=== PATIENT | male | born 1960 | race Two or more races ===

== ENCOUNTER 2019-11-27 22:50 | Inpatient (IN) | payer OTHER ==
[~2019-11-27] VITALS: Ht 165.1 cm; Wt 83.5 kg
[2019-11-27 22:00] VITALS: BP 156/96
--- NOTE | 2019-11-27 22:03 | NUR ---
CHAI NURSE REBECCA FROM [facility] CALLED REPORT ON PATIENT. AWAITING PATIENT ARRIVAL TO FLOOR.
[2019-11-27 22:33] VITALS: BP 156/91
--- NOTE | 2019-11-27 22:33 | NUR ---
Direct Admit Note ESSENCE SALMERON admitted to Telemetry/MS unit as a direct admit per MD order. Patient oriented to BUDDY WILCOX RN primary RN, unit, room, bed, and unit policies regarding patient care and visiting hours. Patient is being admitted under Dr Dash for stroke. Patient placed on bedside oxygen, weighed by bedscale and encouraged to call if they need something. All questions and concerns addressed, patient verbalized understanding. MD notified of patients arrival and admit orders received. Addendum: 11/27/19 at 2341 by BUDDY WILCOX RN RN patient has rightsided facial drop and has guards at bedside.
--- NOTE | 2019-11-27 22:57 | NUR ---
ADMITTING ORDERS CALLED DR CAMPOVERDE FOR ADMITTING ORDERS. DX: CVA, CONDITION: STABLE, ADMIT UNDER DR CAMPOVERDE, ALLERGIES: NKDA, DIET: REGULAR, IV HL, LABS: UDS, MRI BRAIN: FOR CVA, PLAVIX 75MG PO DAILY, NORCO 10/325MG PO EVERY 4HRS PRN PAIN, AND PROTONIX 40 MG PO DAILY. TORBO. ASKED DR CAMPOVERDE FOR NUERO CONSULT, NO NEW ORDERS.
[2019-11-27] MEDS ORDERED: MORPHINE SULF INJ 2 MG/ML SYRINGE 1ML IV PRN (23:00)
[2019-11-27] MEDS ORDERED: HYDROcodone-ACET 10/325MG TAB PO PRN (23:00)
[2019-11-27] MEDS ORDERED: NITROGLYCERIN 0.4 MG SL TAB SL PRN (23:00)
[2019-11-27] MEDS ORDERED: IBUP200C3 PO (23:12)
[2019-11-28 05:00] VITALS: BP 150/101
--- NOTE | 2019-11-28 06:02 | NUR ---
MRSA NARES SWAB SENT. PATIENT HAS NO C/O PAIN OR ANY DISCOMFORT.
[2019-11-28] MEDS ORDERED: cloNIDine HCL 0.1 MG TAB PO PRN (08:45)
[2019-11-28 09:00] VITALS: BP 108/79
[2019-11-28] MEDS: CLOPIDOGREL BISULFATE 75 MG TAB PO SCH (10:39)
[2019-11-28] MEDS: amLODIPine BESYLATE 5 MG TAB PO SCH (10:40)
[2019-11-28] MEDS: PANTOPRAZOLE 40 MG TAB PO SCH (10:40)
[2019-11-28] MEDS ORDERED: ACCU-CHEK COMFORT CURVE STRIP VI SCH (11:06)
[2019-11-28 11:11] LABS: Urine Bacteria NONE SEEN /hpf (None Seen); Urine Blood Negative /uL (Negative); Urine Mucus FEW (None Seen); Urine Specific Gravity 1.044 (1.001-1.035); Urine WBC 1 /hpf (0 - 3)
[2019-11-28 11:23] LABS: Alcohol, Urine < 3.0 mg/dL (0-10); Amphetamine Screen, Urine NEGATIVE (NEGATIVE); Barbiturate Scree,Urine NEGATIVE (NEGATIVE); Benzodiazephine Screen, Urine NEGATIVE (NEGATIVE); Cannabinoid Screen, Urine NEGATIVE (NEGATIVE); Cocaine Screen, Urine NEGATIVE (NEGATIVE); Opiate Scree,Urine NEGATIVE (NEGATIVE); Phencyclidine Screen, Urine NEGATIVE (NEGATIVE)
--- NOTE | 2019-11-28 12:25 | NUR ---
PT ACCU CHECK 322, NO SLIDING SCALE AVAILABLE AT THIS TIME, CALLED AND LEFT MESSAGE FOR DR CAMPOVERDE, AWAITING CALL BACK.
--- NOTE | 2019-11-28 12:43 | NUR ---
CALLED DIETARY AND LEFT MESSAGE NOTIFYING THEM PT IS AN INMATE, PLASTIC SILVERWARE NEEDED.
[2019-11-28 13:00] VITALS: BP 139/79
--- NOTE | 2019-11-28 14:04 | NUR ---
MRI CALLED, THEY REPORT PT HAD AN ACUTE STROKE OF THE LEFT BASIL GANGLIA. CALLED DR CAMPOVERDE, REPORTED TO MD RESULTS OF MRI AND STROKE. NOTIFIED MD PT BLOOD SUGAR 322 AND REQUESTED SLIDING SCALE AND TO CHANGE DIET. MD REPORTS NOT TO CHANGE DIET, BUT ORDERS FOR ACCU CHECKS BID WITH MODERATE COVERAGE. MD AWARE OF STROKE, NO NEW ORDERS.
[2019-11-28] MEDS ORDERED: DEXTROSE (50%) 50ML SYRG IV PRN (14:30)
[2019-11-28] MEDS: InsuLIN REG 1unit/0.01ml Soln (100units/ml) SC SCH ×2 (14:41→22:00)
[2019-11-28] MEDS: ACCU-CHEK COMFORT CURVE STRIP VI SCH ×2 (14:41→22:00)
[2019-11-28 17:00] VITALS: BP 141/72
--- NOTE | 2019-11-28 19:45 | NUR ---
Opening Shift Note Assuming care of patient. Patient is awake and alert. Bed is locked and lowered with side rails up x2. Instructed patient on the plan of care and to call for assistance as needed. Call light within reach. Guards at the bedside and patient handcuffed to bed on right wrist. Will continue to round hourly and prn.
[2019-11-28 22:00] VITALS: BP 142/94
[2019-11-29 05:10] VITALS: BP 138/88
--- NOTE | 2019-11-29 08:43 | NUR ---
Spoke to PT Nimco, will come in about 30 mins.
[2019-11-29 09:00] VITALS: BP 145/85
[2019-11-29] MEDS: CLOPIDOGREL BISULFATE 75 MG TAB PO SCH (09:29)
[2019-11-29] MEDS: PANTOPRAZOLE 40 MG TAB PO SCH (09:29)
[2019-11-29] MEDS: ACCU-CHEK COMFORT CURVE STRIP VI SCH ×2 (09:30→22:14)
[2019-11-29] MEDS: amLODIPine BESYLATE 5 MG TAB PO SCH (09:30)
[2019-11-29] MEDS: InsuLIN REG 1unit/0.01ml Soln (100units/ml) SC SCH ×2 (09:34→22:15)
--- NOTE | 2019-11-29 10:00 | NUR ---
Patient walks with PT, using a walker, tolerated well with minimum assist.
[2019-11-29 13:00] VITALS: BP 155/89
--- NOTE | 2019-11-29 15:53 | NUR ---
Dr. Najera at bedside, received new order, noted and carried it out.
--- NOTE | 2019-11-29 16:21 | NUR ---
Patient upgraded to be TELE, CN notified. Patient placed on TELE # [id number].
--- NOTE | 2019-11-29 16:30 | NUR ---
Transfer of Care Assuming care of patient at this time from RENETTA iVeyra. Patient resting comfortably in bed. No distress noted.
--- NOTE | 2019-11-29 16:30 | NUR ---
Report given to Ariana JACKSON.
[2019-11-29 17:00] VITALS: BP 153/87
--- NOTE | 2019-11-29 19:04 | NUR ---
Closing Shift Note Patient resting in bed. No distress noted. Report given. Will endorse care to the fast food shift lead RN.
--- NOTE | 2019-11-29 19:50 | NUR ---
Opening Shift Note Assumed care of patient, awake and alert. No S/S of distress/SOB or pain. Instructed on POC and to call for assist PRN. Bed in lowest locked position, call light within reach, side rails up x2, fall precautions in place. Will continue to monitor for changes Q1hr and PRN.
--- NOTE | 2019-11-29 21:45 | NUR ---
Called/paged Dr. Dash called regarding elevated blood sugar of 440, recheck was 440. Waiting for call back. Continue care.
--- NOTE | 2019-11-29 21:50 | NUR ---
returned call Dr. Dash returned call, updated on patient status and reason for call, new orders received and read back for verification. Continue care.
[2019-11-29 22:00] VITALS: BP 160/99
[2019-11-29] MEDS ORDERED: INSULIN LANTUS (GLARGINE) 1 /0.01ml (100units/ml) SC SCH (22:00)
[2019-11-30 05:00] VITALS: BP 120/79
--- NOTE | 2019-11-30 07:00 | NUR ---
Opening Shift Note Received report on the patient. Awake lying in bed. Discussed the plan of care with the patient. Patient shows no signs of distress at this time. Bed in lowest position, side rails up x2, and the call light is within reach.
[2019-11-30 09:00] VITALS: BP 128/76
[2019-11-30] MEDS: CLOPIDOGREL BISULFATE 75 MG TAB PO SCH (09:58)
[2019-11-30] MEDS: amLODIPine BESYLATE 5 MG TAB PO SCH (09:58)
[2019-11-30] MEDS: ACCU-CHEK COMFORT CURVE STRIP VI SCH ×2 (09:58→21:54)
[2019-11-30] MEDS: PANTOPRAZOLE 40 MG TAB PO SCH (09:58)
[2019-11-30] MEDS: InsuLIN REG 1unit/0.01ml Soln (100units/ml) SC SCH ×2 (10:16→21:53)
[2019-11-30 13:00] VITALS: BP 122/80
[2019-11-30] MEDS: INSULIN LANTUS (GLARGINE) 1 /0.01ml (100units/ml) SC SCH ×2 (15:08→21:53)
[2019-11-30 16:57] VITALS: BP 126/80
[2019-11-30] MEDS: LACTULOSE 20Gm/30ML SOLN PO SCH (18:38)
--- NOTE | 2019-11-30 19:40 | NUR ---
Opening Shift Note Assumed care of patient, awake and alert x4. No S/S of distress/SOB or pain. Guards are at bedside for safety. Call light is within reach, side rails up x2, bed is in the lowest position. Instructed on POC and to call for assist PRN, will continue to monitor for changes Q1hr and PRN.
[2019-11-30 21:20] VITALS: BP 128/79
[2019-12-01] MEDS: LACTULOSE 20Gm/30ML SOLN PO SCH ×4 (00:08→17:39)
[2019-12-01 05:23] VITALS: BP 133/88
--- NOTE | 2019-12-01 06:00 | NUR ---
Patient refused his 0600 Lactulose, explained to the patient the benefits and risks, he verbalized understanding, will continue to monitor.
[2019-12-01 09:00] VITALS: BP 143/88
[2019-12-01] MEDS: PANTOPRAZOLE 40 MG TAB PO SCH (10:21)
[2019-12-01] MEDS: METOPROLOL SUCCINATE XL 50 MG TAB PO SCH (10:21)
[2019-12-01] MEDS: CLOPIDOGREL BISULFATE 75 MG TAB PO SCH (10:21)
[2019-12-01] MEDS: ACCU-CHEK COMFORT CURVE STRIP VI SCH ×2 (10:22→21:23)
[2019-12-01] MEDS: LISINOPRIL 5 MG TAB PO SCH (10:22)
[2019-12-01] MEDS: InsuLIN REG 1unit/0.01ml Soln (100units/ml) SC SCH ×2 (11:03→21:54)
--- NOTE | 2019-12-01 12:00 | NUR ---
Patient refused lactulose
[2019-12-01 13:00] VITALS: BP 148/87
--- NOTE | 2019-12-01 13:51 | NUR ---
Est energy needs 3191-8900 kcal (23-25 kcal/kg BW 83.5kg) Est protein needs 67-84g (0.8-1g/kg BW 83.5kg) Will reassess prn. Addendum: 12/01/19 at [address] Amended: Links added.
[2019-12-01 17:00] VITALS: BP 103/61
--- NOTE | 2019-12-01 19:35 | NUR ---
Opening Shift Note Assumed care of patient, awake and alert. No S/S of distress/SOB or pain. Bed in lowest locked position, side rails up x2, call light within reach. Guards at bedside. Instructed on POC and to call for assist PRN, will continue to monitor for changes Q1hr and PRN.
--- NOTE | 2019-12-01 20:00 | NUR ---
Offered to change patient's IV site as per hospital policy. Patient refusing at this time. Patient educated on the risks and benefits of keeping current IV, patient verbalized understanding, but is continuing to refuse at this time. Current IV to right AC asymptomatic and patent. Will continue to monitor.
[2019-12-01] MEDS: INSULIN LANTUS (GLARGINE) 1 /0.01ml (100units/ml) SC SCH (21:55)
[2019-12-01 22:00] VITALS: BP 135/75
--- NOTE | 2019-12-02 | NUR ---
Patient refused his 00:00 Lactulose. This RN explained to the patient the benefits and risks of the aforementioned medication. Patient verbalized understanding, continues to refuse at this time., states he had a bowel movement on 12/01/19. Will continue to monitor.
[2019-12-02] MEDS: LACTULOSE 20Gm/30ML SOLN PO SCH ×4 (00:34→17:28)
[2019-12-02 05:49] VITALS: BP 118/72
[2019-12-02 09:00] VITALS: BP 117/76
[2019-12-02] MEDS: InsuLIN REG 1unit/0.01ml Soln (100units/ml) SC SCH ×2 (10:00→21:44)
[2019-12-02] MEDS: METOPROLOL SUCCINATE XL 50 MG TAB PO SCH (11:03)
[2019-12-02] MEDS: PANTOPRAZOLE 40 MG TAB PO SCH (11:03)
[2019-12-02] MEDS: CLOPIDOGREL BISULFATE 75 MG TAB PO SCH (11:03)
[2019-12-02] MEDS: LISINOPRIL 5 MG TAB PO SCH (11:04)
[2019-12-02] MEDS: ACCU-CHEK COMFORT CURVE STRIP VI SCH ×2 (11:04→21:48)
--- NOTE | 2019-12-02 11:45 | NUR ---
Opening Shift Note Assumed care of patient, awake, alert, and oriented. No S/S of distress/SOB or pain. Bed in lowest/locked position, bed rails up x2, call light within reach. Instructed on POC and to call for assist PRN. Will continue to monitor for changes Q1hr and PRN.
--- NOTE | 2019-12-02 11:45 | NUR ---
REPORT REPORT RECEIVED FROM RENETTA SINGH. ALL QUESTIONS/CONCERNS ADDRESSED.
--- NOTE | 2019-12-02 11:56 | NUR ---
Closing Note Patient lying in bed, awake and alert. No s/s of distress. Bed in lowest locked position, side rails up x2, call light within reach. Guards at bedside. Care endorsed to Christina JACKSON for continuation of care.
--- NOTE | 2019-12-02 12:00 | NUR ---
Patient refused lactulose. Last bowel movement per patient reported 11/30
[2019-12-02 13:00] VITALS: BP 118/71
[2019-12-02 16:52] VITALS: BP 141/79
--- NOTE | 2019-12-02 17:28 | NUR ---
Patient refused lactulose. Last bowel movement per patient reported 11/30
--- NOTE | 2019-12-02 19:00 | NUR ---
OPENING NOTE Received report from day shift RN. Patient is awake/ alert and oriented. No s/s of distress noted. Patient reports no pain. Bed is in lowest/locked position with side rails up X's 2 and call light is within reach of patient. Guards are at bedside. Educated patient on POC and to use call light when in need of assistance. Patient verbalized understanding. Will continue care.
[2019-12-02] MEDS: INSULIN LANTUS (GLARGINE) 1 /0.01ml (100units/ml) SC SCH (21:47)
[2019-12-02 22:00] VITALS: BP 133/70
[2019-12-03 05:47] VITALS: BP 141/72
[2019-12-03] MEDS: LACTULOSE 20Gm/30ML SOLN PO SCH ×4 (06:00→17:29)
--- NOTE | 2019-12-03 08:00 | NUR ---
RECEIVED PATIENT ALERT AND ORIENTED X4, NOT IN DISTRESS, SLUED SPEECH NOTED, CLEAR LUNG SOUNDS IN BILATERAL LUNG LOBES, RR=16, SAT=98%, DEEP BREATHING AND COUGHING WAS ENCOURAGED, DEMONSTRATED AND VERBALIZED UNDERSTANDING, DENIED SOB AND CHEST PAIN, HEAT R=64 SR ON TELE MONITOR, ABDOMEN SOFT WITH ACTIVE BS, LAST BM=12/01/19 REPORTED, SKIN INTACT WARM TO TOUCH, RADIAL AND PEDAL PULSES PALPABLE, CAP REFILL <3 SECONDS, RT. UPPER EXTREMITY FAXED, FEELS SENSATION REPORTED, DENIED PAIN, RESTING ON BED, HEAD OF BED ELEVATED, BED ON LOW POSITION, RAILS UP X2, CALL LIGHT ON REACH, IN MATE GUARDS AT BED SIDE, HEALTH SERVICES ASSESSED PATIENT REPORTED, PENDING SS CONSULT, WILL CONTINUE MONITORING.
[2019-12-03 08:45] VITALS: BP 120/71
[2019-12-03] MEDS: ACCU-CHEK COMFORT CURVE STRIP VI SCH ×2 (10:00→21:49)
[2019-12-03] MEDS: InsuLIN REG 1unit/0.01ml Soln (100units/ml) SC SCH ×2 (10:00→21:47)
[2019-12-03] MEDS: METOPROLOL SUCCINATE XL 50 MG TAB PO SCH (10:56)
[2019-12-03] MEDS: PANTOPRAZOLE 40 MG TAB PO SCH (10:56)
[2019-12-03] MEDS: LISINOPRIL 5 MG TAB PO SCH (10:56)
[2019-12-03] MEDS: CLOPIDOGREL BISULFATE 75 MG TAB PO SCH (10:57)
--- NOTE | 2019-12-03 11:00 | NUR ---
HEALTH SERVICE FROM [facility] CAME TO ASSESS D/C PROCESS, PATIENT COOPERATED WELL, OUT OF BED WITH PT USING WALKER, TOLERATED WELL, BACK TO THE BED AND RESTING, DENIED PAIN, NOT IN DISTRESS, WILL CONTINUE MONITORING.
[2019-12-03] MEDS ORDERED: INSULIN LANTUS (GLARGINE) 1 /0.01ml (100units/ml) SC ONE (12:45)
[2019-12-03 12:52] VITALS: BP 151/82
[2019-12-03 17:04] VITALS: BP 135/76
--- NOTE | 2019-12-03 19:05 | NUR ---
Sitting on bed, eating dinner, not in distress, report was given to the machinist 2nd shift RN.
--- NOTE | 2019-12-03 21:01 | NUR ---
PATIENT AMBULATION Patient ambulated to bathroom and back into bed safely. Patient was provided with walker. Complete linen change was done at this time. Will continue care.
[2019-12-03 22:00] VITALS: BP 100/65
[2019-12-04 05:00] VITALS: BP 121/80
[2019-12-04] MEDS: LACTULOSE 20Gm/30ML SOLN PO SCH ×4 (05:54→18:00)
--- NOTE | 2019-12-04 07:59 | NUR ---
RECEIVED PATIENT ALERT AND ORIENTED X4, NOT IN DISTRESS, SLUED SPEECH NOTED, CLEAR LUNG SOUNDS IN BILATERAL LUNG LOBES, RR=18, SAT=97%, DEEP BREATHING AND COUGHING WAS ENCOURAGED, DEMONSTRATED AND VERBALIZED UNDERSTANDING, DENIED SOB AND CHEST PAIN, HEAT R=82 SR ON TELE MONITOR, ABDOMEN SOFT WITH ACTIVE BS, LAST BM=12/03/19 REPORTED, SKIN INTACT WARM TO TOUCH, RADIAL AND PEDAL PULSES PALPABLE, CAP REFILL <3 SECONDS, RT. UPPER EXTREMITY FAXED, FEELS SENSATION AND UNABLE TO WIGGLE FINGERS REPORTED, DENIED PAIN, RESTING ON BED, HEAD OF BED ELEVATED, BED ON LOW POSITION, RAILS UP X2, CALL LIGHT ON REACH, PENDING SS CONSULT, WILL CONTINUE MONITORING.
[2019-12-04 09:00] VITALS: BP 140/80
[2019-12-04] MEDS: InsuLIN REG 1unit/0.01ml Soln (100units/ml) SC SCH ×2 (10:00→21:34)
[2019-12-04] MEDS: ACCU-CHEK COMFORT CURVE STRIP VI SCH ×2 (10:00→21:34)
[2019-12-04] MEDS: CLOPIDOGREL BISULFATE 75 MG TAB PO SCH (10:54)
[2019-12-04] MEDS: PANTOPRAZOLE 40 MG TAB PO SCH (10:54)
[2019-12-04] MEDS: METOPROLOL SUCCINATE XL 50 MG TAB PO SCH (10:55)
[2019-12-04] MEDS: LISINOPRIL 5 MG TAB PO SCH (10:55)
--- NOTE | 2019-12-04 11:45 | NUR ---
NOT IN DISTRESS, DENIED PAIN, RESTING ON BED, REFUSED 1200 PM LACTULOSE PO, WILL CONTINUE MONITORING.
--- NOTE | 2019-12-04 12:15 | NUR ---
Nutrition Follow-up Notes Wt.: 81.8 kg Pt with gaurds by bedside. pt with no distress noted, currently on regular diet with adequate Po of >75% x 6 per RN doc Est energy needs 3376-5147 kcal (23-25 kcal/kg BW 83.5kg) Est protein needs 67-84g (0.8-1g/kg BW 83.5kg) Will reassess prn. Labs: POC GLU 196 H Skin: Juan M scale 20 low risk skin intact per tea tree farm worker. GI: 1 BM today per rn doc PES: 1) Altered nutrition related lab values r/t current/chronic medical condition aeb hyperglycemia 2) Decreased nutrient needs r.t adiposity aeb pt`s high BMI of 30.0 kgm2 Will continue to monitor PO intake, skin status, pertinent labs and weight trend. F/u in 3-5 days. Rec.: 1.) consider CCHO 60 gm diet. 2) refer to CDE on DC. 3) Continue current plan of care
[2019-12-04 12:22] VITALS: BP 129/72
[2019-12-04 17:00] VITALS: BP 107/70
--- NOTE | 2019-12-04 19:34 | NUR ---
Sitting on bed, eating dinner, not in distress, report was given to the shift superintendent caustic cresylate RN.
[2019-12-04] MEDS: INSULIN LANTUS (GLARGINE) 1 /0.01ml (100units/ml) SC SCH (21:34)
[2019-12-04 22:00] VITALS: BP 144/83
[2019-12-05 05:17] VITALS: BP 132/79
[2019-12-05] MEDS: LACTULOSE 20Gm/30ML SOLN PO SCH ×5 (05:52→23:59)
[2019-12-05 09:00] VITALS: BP 100/52
--- NOTE | 2019-12-05 09:40 | NUR ---
DR PEREZ AT BEDSIDE. DISCUSSED PLAN OF CARE WITH PATIENT. PATIENT VERBALIZED UNDERSTANDING. TURP TODAY AT [address] MAXWELL.
[2019-12-05] MEDS: METOPROLOL SUCCINATE XL 50 MG TAB PO SCH (09:47)
[2019-12-05] MEDS: LISINOPRIL 5 MG TAB PO SCH (09:51)
[2019-12-05] MEDS ORDERED: ACETAMINOPHEN IV 100 ML IV ONE (10:36)
[2019-12-05] MEDS: PANTOPRAZOLE 40 MG TAB PO SCH (11:05)
[2019-12-05] MEDS: CLOPIDOGREL BISULFATE 75 MG TAB PO SCH (11:06)
[2019-12-05] MEDS: InsuLIN REG 1unit/0.01ml Soln (100units/ml) SC SCH ×2 (12:00→22:07)
[2019-12-05] MEDS: ACCU-CHEK COMFORT CURVE STRIP VI SCH ×2 (12:00→22:06)
[2019-12-05 13:00] VITALS: BP 102/70
[2019-12-05 16:46] VITALS: BP 140/83
--- NOTE | 2019-12-05 19:35 | NUR ---
Opening Shift Note Assumed care of patient, awake and alert. No S/S of distress/SOB or pain. With right sided weakness. Instructed to call for assist PRN, patient verbalized understanding. Safety precaution in place, [facility] guards at bedside, will continue to monitor for changes Q1hr and PRN.
[2019-12-05 22:00] VITALS: BP 152/86
[2019-12-05] MEDS: INSULIN LANTUS (GLARGINE) 1 /0.01ml (100units/ml) SC SCH (22:07)
--- NOTE | 2019-12-06 02:39 | NUR ---
ROUNDING Patient sleeping at this time, respirations even and unlabored, will continue to monitor
[2019-12-06 05:00] VITALS: BP 146/87
[2019-12-06] MEDS: LACTULOSE 20Gm/30ML SOLN PO SCH ×2 (06:00→12:26)
--- NOTE | 2019-12-06 07:30 | NUR ---
OPENING NOTE Assumed responsibility of patient at 0700. Patient is alert and oriented x 4 and able to make needs known. Respiratory sounds clear, equal bilaterally and unlabored. Patient verbalized that he is not having any pain right now. Reviewed plan of care with patient and patient verbalized understanding. Bed locked in lowest position, HOB elevated at least 30 degrees and call light is within reach.
[2019-12-06] MEDS: PANTOPRAZOLE 40 MG TAB PO SCH (09:08)
[2019-12-06] MEDS: CLOPIDOGREL BISULFATE 75 MG TAB PO SCH (09:08)
[2019-12-06] MEDS: LISINOPRIL 5 MG TAB PO SCH (09:08)
[2019-12-06 09:09] VITALS: BP 114/69
[2019-12-06] MEDS: InsuLIN REG 1unit/0.01ml Soln (100units/ml) SC SCH (09:18)
[2019-12-06] MEDS: METOPROLOL SUCCINATE XL 50 MG TAB PO SCH (09:18)
[2019-12-06] MEDS: ACCU-CHEK COMFORT CURVE STRIP VI SCH (09:19)
[2019-12-06 13:00] VITALS: BP 123/83
[2019-12-06] MEDS ORDERED: INSLANTI SC (15:49)
[2019-12-06] MEDS ORDERED: METO-6 PO (15:49)
[2019-12-06] MEDS ORDERED: CLOP75TA28 PO (15:49)
[2019-12-06 16:10] VITALS: BP 123/83
[2019-12-06 17:15] VITALS: BP 105/63
--- NOTE | 2019-12-06 17:20 | NUR ---
Discharge instructions given as ordered. All questions and concerns addressed. Patient verbalized understanding. IV removed with catheter intact, pressure dressing applied. Telemetry unit returned to ICU. Report given to Gi at [facility]. Patient transported by [facility] guards with all personal belongings. No distress noted at time of departure.
== END 2019-12-06 17:17 | DRG 65 ==
LOC: TELE-CENTR 22:50 → CENTRAL 11-28 19:35 → TELE-CENTR 11-29 15:56
PROVIDERS: ADMIT Internal Medicine; ATTEND Internal Medicine
DX: I63.9 Cerebral infarction, unspecified (principal); G81.91 Hemiplegia, unspecified affecting right dominant side; R29.810 Facial weakness; I48.0 Paroxysmal atrial fibrillation; E11.9 Type 2 diabetes mellitus without complications; I10 Essential (primary) hypertension; Z86.73 Personal history of transient ischemic attack (TIA), and cerebral infarction without residual deficits
CPT/HCPCS: 70551; 80307; 81001; 82962; 87081; 93306; 97110; 97116; 97163; 97530; G0378; J0131; J1815